=== PATIENT | female | born 1945 | race Caucasian/White ===

== ENCOUNTER 2021-09-22 14:17 | Inpatient (IN) | payer MEDICARE, OTHER ==
[~2021-09-22] VITALS: Ht 170.2 cm; Wt 113.0 kg
[2021-09-22 15:00] VITALS: BP 126/86
[2021-09-22] MEDS ORDERED: POTA-151 PO (15:35)
[2021-09-22] MEDS ORDERED: FURO40TA2 PO (15:35)
[2021-09-22] MEDS ORDERED: HYDR-3490 PO (15:35)
[2021-09-22] MEDS ORDERED: ELIQ5TAB PO (15:35)
[2021-09-22 17:02] LABS: INR 1.43; PROTHROMBIN TIME 17.9 SECONDS (12.7-14.5)
[2021-09-22 17:05] LABS: ALBUMIN 3.1 GM/DL (3.2-5.2); ALT/SGPT 10 U/L (12-78); BILIRUBIN,TOTAL 0.7 MG/DL (0.2-1.0); BLOOD UREA NITROGEN 14 MG/DL (7-18); CALCIUM LEVEL 8.9 MG/DL (8.8-10.2); CARBON DIOXIDE LEVEL 30 MEQ/L (21-32); CHLORIDE LEVEL 103 MEQ/L (98-107); GLOMERULAR FILTRATION RATE > 60.0 (>39); GLUCOSE, FASTING 121 MG/DL (70-100); POTASSIUM SERUM 3.8 MEQ/L (3.5-5.1); SODIUM LEVEL 138 MEQ/L (136-145); TOTAL PROTEIN 7.2 GM/DL (6.4-8.2)
[2021-09-22] MEDS ORDERED: VANCOMYCIN HCL 1,000 MG, VIAL MATE ADAPTER 1 EACH in NS 250 ML IV SCH (17:05)
[2021-09-22 17:18] LABS: HEMATOCRIT 40.1 % (36.0-47.0); HEMOGLOBIN 12.5 g/dl (12.0-15.5); MEAN CORPUSCULAR HGB CONC 31.2 g/dl (32.0-36.5); PLATELET COUNT, AUTOMATED 251 10^3/uL (150-450); RED BLOOD COUNT 4.31 10^6/uL (4.00-5.40)
[2021-09-22] MEDS ORDERED: METF500T13 PO (17:25)
[2021-09-22] MEDS: PIPERACILLIN/TAZOBACTAM SOD 3.375 GM in D5W MINI-BAG PLUS 50 ML IV SCH (17:25)
[2021-09-22] MEDS ORDERED: CARV6.25 PO (17:25)
[2021-09-22] MEDS ORDERED: AMLO1TAB25 PO (17:25)
[2021-09-22] MEDS ORDERED: SIMV10TA21 PO (17:25)
[2021-09-22] MEDS ORDERED: ACET-683 PO (17:27)
[2021-09-22] MEDS ORDERED: ASPI81TA26 PO (17:27)
[2021-09-22] MEDS ORDERED: HOME MED LIST COMPLETE! XX SCH (17:30)
[2021-09-22 17:58] LABS: HEMOGLOBIN A1c 5.5 %
[2021-09-22] MEDS ORDERED: FLUCONAZOLE 50MG TABLET PO ONE (18:00)
[2021-09-22] MEDS ORDERED: VANCOMYCIN HCL 1,000 MG, VIAL MATE ADAPTER 1 EACH in NS 250 ML IV ONE ×2 (18:00→19:00)
[2021-09-22 19:18] VITALS: BP 105/57
[2021-09-22] MEDS: CARVedilol 6.25 MG TAB PO SCH (20:38)
[2021-09-22] MEDS: NYSTATIN CREAM 15 GM TOP SCH (20:39)
[2021-09-22] MEDS: APIXABAN 5 MG TAB (ELIQUIS) PO SCH (20:39)
[2021-09-22 22:00] VITALS: BP 105/62
[2021-09-23] MEDS: PIPERACILLIN/TAZOBACTAM SOD 3.375 GM in D5W MINI-BAG PLUS 50 ML IV SCH ×5 (00:12→23:45)
[2021-09-23] MEDS: VANCOMYCIN HCL 750 MG, VIAL MATE ADAPTER 1 EACH in NS 250 ML IV SCH ×2 (05:53→18:05)
[2021-09-23 06:00] VITALS: BP 127/79
[2021-09-23 06:06] LABS: HEMATOCRIT 35.3 % (36.0-47.0); HEMOGLOBIN 11.1 g/dl (12.0-15.5); MEAN CORPUSCULAR HEMOGLOBIN 29.1 pg (27.0-33.0); MEAN CORPUSCULAR HGB CONC 31.4 g/dl (32.0-36.5); MEAN CORPUSCULAR VOLUME 92.4 fl (80.0-96.0); PLATELET COUNT, AUTOMATED 274 10^3/uL (150-450); RED BLOOD COUNT 3.82 10^6/uL (4.00-5.40); WHITE BLOOD COUNT 6.1 10^3/uL (4.0-10.0)
[2021-09-23 06:27] LABS: BLOOD UREA NITROGEN 14 MG/DL (7-18); CALCIUM LEVEL 8.4 MG/DL (8.8-10.2); CARBON DIOXIDE LEVEL 26 MEQ/L (21-32); CHLORIDE LEVEL 109 MEQ/L (98-107); CREATININE FOR GFR 0.94 MG/DL (0.55-1.30); GLOMERULAR FILTRATION RATE > 60.0 (>39); GLUCOSE, FASTING 108 MG/DL (70-100); SODIUM LEVEL 142 MEQ/L (136-145)
[2021-09-23] MEDS: SIMVASTATIN 10 MG TAB PO SCH (08:20)
[2021-09-23] MEDS: APIXABAN 5 MG TAB (ELIQUIS) PO SCH ×2 (08:20→20:36)
[2021-09-23] MEDS: ASPIRIN 81MG ENTERIC TABLET PO SCH (08:21)
[2021-09-23] MEDS: NYSTATIN CREAM 15 GM TOP SCH ×2 (08:21→20:37)
[2021-09-23] MEDS: CARVedilol 6.25 MG TAB PO SCH ×2 (08:21→20:37)
[2021-09-23 14:00] VITALS: BP 126/72
[2021-09-23] MEDS ORDERED: MORPHINE 2 MG/ML 1ML VIAL (J2270) IV STA (17:18)
[2021-09-23] MEDS ORDERED: MORPHINE 2 MG/ML 1ML VIAL (J2270) As Ordered ONE (17:18)
[2021-09-23 22:00] VITALS: BP 131/84
[2021-09-24] MEDS: PIPERACILLIN/TAZOBACTAM SOD 3.375 GM in D5W MINI-BAG PLUS 50 ML IV SCH ×3 (05:21→17:58)
[2021-09-24 06:00] VITALS: BP_SYST 134; BP_SYST 142; BP_DIAS 85; BP_DIAS 88
[2021-09-24] MEDS: VANCOMYCIN HCL 500 MG in D5W MINI-BAG PLUS 100 ML IV SCH ×2 (06:32→19:02)
[2021-09-24 07:09] LABS: HEMATOCRIT 36.3 % (36.0-47.0); HEMOGLOBIN 11.3 g/dl (12.0-15.5); MEAN CORPUSCULAR HEMOGLOBIN 29.1 pg (27.0-33.0); MEAN CORPUSCULAR HGB CONC 31.1 g/dl (32.0-36.5); MEAN CORPUSCULAR VOLUME 93.6 fl (80.0-96.0); PLATELET COUNT, AUTOMATED 278 10^3/uL (150-450); RED BLOOD COUNT 3.88 10^6/uL (4.00-5.40); WHITE BLOOD COUNT 5.2 10^3/uL (4.0-10.0)
[2021-09-24 07:41] LABS: CALCIUM LEVEL 8.4 MG/DL (8.8-10.2); CREATININE FOR GFR 1.04 MG/DL (0.55-1.30); GLOMERULAR FILTRATION RATE 55.3 (>39); POTASSIUM SERUM 3.8 MEQ/L (3.5-5.1)
[2021-09-24] MEDS: APIXABAN 5 MG TAB (ELIQUIS) PO SCH ×2 (08:27→20:34)
[2021-09-24] MEDS: SIMVASTATIN 10 MG TAB PO SCH (08:27)
[2021-09-24] MEDS: ASPIRIN 81MG ENTERIC TABLET PO SCH (08:27)
[2021-09-24] MEDS: ACETAMINOPHEN TAB 650MG DOSE (2X325MG) PO PRN (08:28)
[2021-09-24] MEDS: CARVedilol 6.25 MG TAB PO SCH ×2 (08:29→20:35)
[2021-09-24] MEDS: NYSTATIN CREAM 15 GM TOP SCH ×2 (08:30→20:36)
[2021-09-24 14:00] VITALS: BP 130/80
[2021-09-24 21:30] VITALS: BP 128/79
[2021-09-25] MEDS: PIPERACILLIN/TAZOBACTAM SOD 3.375 GM in D5W MINI-BAG PLUS 50 ML IV SCH ×2 (00:33→05:49)
[2021-09-25 05:26] LABS: HEMATOCRIT 36.8 % (36.0-47.0); HEMOGLOBIN 11.4 g/dl (12.0-15.5); MEAN CORPUSCULAR HEMOGLOBIN 29.1 pg (27.0-33.0); MEAN CORPUSCULAR VOLUME 93.9 fl (80.0-96.0); PLATELET COUNT, AUTOMATED 286 10^3/uL (150-450); RED BLOOD COUNT 3.92 10^6/uL (4.00-5.40); WHITE BLOOD COUNT 5.3 10^3/uL (4.0-10.0)
[2021-09-25 05:55] LABS: ERYTHROCYTE SEDIMENTATION RATE 20 mm/hr (0-30)
[2021-09-25 05:57] LABS: BLOOD UREA NITROGEN 18 MG/DL (7-18); C REACTIVE PROTEIN QUANTITATIV 2.17 MG/DL (0.00-0.30); CALCIUM LEVEL 8.5 MG/DL (8.8-10.2); CARBON DIOXIDE LEVEL 27 MEQ/L (21-32); CHLORIDE LEVEL 108 MEQ/L (98-107); CREATININE FOR GFR 0.96 MG/DL (0.55-1.30); GLOMERULAR FILTRATION RATE > 60.0 (>39); GLUCOSE, FASTING 107 MG/DL (70-100); POTASSIUM SERUM 3.8 MEQ/L (3.5-5.1); SODIUM LEVEL 139 MEQ/L (136-145)
[2021-09-25 06:00] VITALS: BP 127/78
[2021-09-25] MEDS: VANCOMYCIN HCL 500 MG in D5W MINI-BAG PLUS 100 ML IV SCH (06:53)
[2021-09-25] MEDS: SIMVASTATIN 10 MG TAB PO SCH (08:10)
[2021-09-25] MEDS: APIXABAN 5 MG TAB (ELIQUIS) PO SCH ×2 (08:10→20:41)
[2021-09-25] MEDS: NYSTATIN CREAM 15 GM TOP SCH ×2 (08:10→20:42)
[2021-09-25] MEDS: ASPIRIN 81MG ENTERIC TABLET PO SCH (08:10)
[2021-09-25] MEDS: CARVedilol 6.25 MG TAB PO SCH ×2 (08:12→20:41)
[2021-09-25] MEDS: ACETAMINOPHEN TAB 650MG DOSE (2X325MG) PO PRN (08:15)
[2021-09-25] MEDS: LACTOBACILLUS ACIDOPHILUS CAP (BACID) PO SCH ×3 (08:43→17:46)
[2021-09-25] MEDS: cefTRIAXone SOD 2 GM in D5W MINI-BAG PLUS 50 ML IV SCH (08:44)
[2021-09-25] MEDS: BACTRIM 160MG/800MG DS TAB PO SCH ×2 (08:44→20:41)
[2021-09-25 10:12] LABS: CLOSTRIDIUM DIFFICILE PCR NEGATIVE (NEGATIVE)
[2021-09-25 12:07] VITALS: BP 129/78
[2021-09-25 14:00] VITALS: BP 130/78
[2021-09-25 21:00] VITALS: BP 131/78
[2021-09-26] MEDS ORDERED: NYSTATIN 100,000 UNITS/GM TOPICAL PWD 15 GM TOP PRN (00:40)
[2021-09-26 05:37] VITALS: BP 141/93
[2021-09-26 06:43] LABS: HEMATOCRIT 37.6 % (36.0-47.0); HEMOGLOBIN 11.7 g/dl (12.0-15.5); MEAN CORPUSCULAR HGB CONC 31.1 g/dl (32.0-36.5); MEAN CORPUSCULAR VOLUME 93.1 fl (80.0-96.0); PLATELET COUNT, AUTOMATED 302 10^3/uL (150-450); RED BLOOD COUNT 4.04 10^6/uL (4.00-5.40); WHITE BLOOD COUNT 5.5 10^3/uL (4.0-10.0)
[2021-09-26 07:06] LABS: BLOOD UREA NITROGEN 17 MG/DL (7-18); CALCIUM LEVEL 8.5 MG/DL (8.8-10.2); CARBON DIOXIDE LEVEL 26 MEQ/L (21-32); CHLORIDE LEVEL 107 MEQ/L (98-107); CREATININE FOR GFR 0.94 MG/DL (0.55-1.30); GLOMERULAR FILTRATION RATE > 60.0 (>39); GLUCOSE, FASTING 97 MG/DL (70-100); POTASSIUM SERUM 3.8 MEQ/L (3.5-5.1); SODIUM LEVEL 140 MEQ/L (136-145)
[2021-09-26] MEDS: LACTOBACILLUS ACIDOPHILUS CAP (BACID) PO SCH ×3 (07:45→17:36)
[2021-09-26] MEDS: SIMVASTATIN 10 MG TAB PO SCH (07:46)
[2021-09-26] MEDS: APIXABAN 5 MG TAB (ELIQUIS) PO SCH ×2 (07:46→21:17)
[2021-09-26] MEDS: BACTRIM 160MG/800MG DS TAB PO SCH ×2 (07:46→21:16)
[2021-09-26] MEDS: ASPIRIN 81MG ENTERIC TABLET PO SCH (07:46)
[2021-09-26] MEDS: cefTRIAXone SOD 2 GM in D5W MINI-BAG PLUS 50 ML IV SCH (07:46)
[2021-09-26] MEDS: CARVedilol 6.25 MG TAB PO SCH ×2 (07:51→21:17)
[2021-09-26] MEDS: ACETAMINOPHEN TAB 650MG DOSE (2X325MG) PO PRN (09:14)
[2021-09-26] MEDS ORDERED: RISATAB3 PO (09:32)
[2021-09-26] MEDS ORDERED: AMOX875T PO (09:32)
[2021-09-26] MEDS ORDERED: DOXY-350 PO (09:32)
[2021-09-26] MEDS ORDERED: NYST10006 TOP (09:32)
[2021-09-26] MEDS ORDERED: SILVER SULFADIAZINE 1% CR 50 GM JAR TOP SCH (14:00)
[2021-09-26] MEDS: AMOXICILLIN 875 MG TAB PO SCH (21:16)
[2021-09-27 05:51] VITALS: BP 141/89
[2021-09-27 06:37] LABS: HEMATOCRIT 38.3 % (36.0-47.0); MEAN CORPUSCULAR HEMOGLOBIN 29.3 pg (27.0-33.0); MEAN CORPUSCULAR HGB CONC 31.3 g/dl (32.0-36.5); MEAN CORPUSCULAR VOLUME 93.4 fl (80.0-96.0); PLATELET COUNT, AUTOMATED 289 10^3/uL (150-450); WHITE BLOOD COUNT 6.1 10^3/uL (4.0-10.0)
[2021-09-27 06:59] LABS: CALCIUM LEVEL 8.6 MG/DL (8.8-10.2); CREATININE FOR GFR 0.99 MG/DL (0.55-1.30); GLOMERULAR FILTRATION RATE 58.5 (>39); POTASSIUM SERUM 4.1 MEQ/L (3.5-5.1)
[2021-09-27] MEDS: ASPIRIN 81MG ENTERIC TABLET PO SCH (08:14)
[2021-09-27] MEDS: SIMVASTATIN 10 MG TAB PO SCH (08:14)
[2021-09-27] MEDS: AMOXICILLIN 875 MG TAB PO SCH ×2 (08:14→20:09)
[2021-09-27] MEDS: APIXABAN 5 MG TAB (ELIQUIS) PO SCH ×2 (08:14→20:09)
[2021-09-27] MEDS: LACTOBACILLUS ACIDOPHILUS CAP (BACID) PO SCH ×3 (08:14→18:13)
[2021-09-27] MEDS: BACTRIM 160MG/800MG DS TAB PO SCH ×2 (08:14→20:09)
[2021-09-27] MEDS: CARVedilol 6.25 MG TAB PO SCH ×2 (08:15→20:09)
[2021-09-27] MEDS: ACETAMINOPHEN TAB 650MG DOSE (2X325MG) PO PRN (18:13)
[2021-09-28 05:47] VITALS: BP 136/78
[2021-09-28] MEDS: ASPIRIN 81MG ENTERIC TABLET PO SCH (09:08)
[2021-09-28] MEDS: LACTOBACILLUS ACIDOPHILUS CAP (BACID) PO SCH ×3 (09:09→18:48)
[2021-09-28] MEDS: BACTRIM 160MG/800MG DS TAB PO SCH ×2 (09:09→20:19)
[2021-09-28] MEDS: CARVedilol 6.25 MG TAB PO SCH ×2 (09:09→20:20)
[2021-09-28] MEDS: APIXABAN 5 MG TAB (ELIQUIS) PO SCH ×2 (09:09→20:19)
[2021-09-28] MEDS: SIMVASTATIN 10 MG TAB PO SCH (09:09)
[2021-09-28] MEDS: ACETAMINOPHEN TAB 650MG DOSE (2X325MG) PO PRN (09:12)
[2021-09-28] MEDS: AMOXICILLIN 875 MG TAB PO SCH ×2 (09:12→20:19)
[2021-09-29 06:00] VITALS: BP 125/80
[2021-09-29] MEDS: ASPIRIN 81MG ENTERIC TABLET PO SCH (08:40)
[2021-09-29] MEDS: APIXABAN 5 MG TAB (ELIQUIS) PO SCH ×2 (08:40→20:58)
[2021-09-29] MEDS: AMOXICILLIN 875 MG TAB PO SCH ×2 (08:41→20:57)
[2021-09-29] MEDS: SIMVASTATIN 10 MG TAB PO SCH (08:41)
[2021-09-29] MEDS: LACTOBACILLUS ACIDOPHILUS CAP (BACID) PO SCH ×3 (08:41→17:59)
[2021-09-29] MEDS: BACTRIM 160MG/800MG DS TAB PO SCH ×2 (08:41→20:58)
[2021-09-29] MEDS: CARVedilol 6.25 MG TAB PO SCH ×2 (08:42→20:58)
[2021-09-29] MEDS: ACETAMINOPHEN TAB 650MG DOSE (2X325MG) PO PRN (08:47)
[2021-09-29 22:00] VITALS: BP 129/73
[2021-09-30 06:00] VITALS: BP 134/74
[2021-09-30 08:00] VITALS: BP 121/66
[2021-09-30] MEDS: ASPIRIN 81MG ENTERIC TABLET PO SCH (08:21)
[2021-09-30] MEDS: AMOXICILLIN 875 MG TAB PO SCH ×2 (08:21→20:50)
[2021-09-30] MEDS: APIXABAN 5 MG TAB (ELIQUIS) PO SCH ×2 (08:21→20:50)
[2021-09-30] MEDS: LACTOBACILLUS ACIDOPHILUS CAP (BACID) PO SCH ×3 (08:21→17:24)
[2021-09-30] MEDS: SIMVASTATIN 10 MG TAB PO SCH (08:21)
[2021-09-30] MEDS: CARVedilol 6.25 MG TAB PO SCH ×2 (08:23→20:50)
[2021-09-30] MEDS: ACETAMINOPHEN TAB 650MG DOSE (2X325MG) PO PRN (11:10)
[2021-10-01 06:00] VITALS: BP 137/90
[2021-10-01] MEDS: AMOXICILLIN 875 MG TAB PO SCH ×2 (08:29→20:51)
[2021-10-01] MEDS: ASPIRIN 81MG ENTERIC TABLET PO SCH (08:29)
[2021-10-01] MEDS: LACTOBACILLUS ACIDOPHILUS CAP (BACID) PO SCH ×3 (08:29→16:54)
[2021-10-01] MEDS: APIXABAN 5 MG TAB (ELIQUIS) PO SCH ×2 (08:29→20:51)
[2021-10-01] MEDS: SIMVASTATIN 10 MG TAB PO SCH (08:32)
[2021-10-01] MEDS: CARVedilol 6.25 MG TAB PO SCH ×2 (08:32→20:51)
[2021-10-01] MEDS: ACETAMINOPHEN TAB 650MG DOSE (2X325MG) PO PRN (16:54)
[2021-10-02 06:00] VITALS: BP 138/74
[2021-10-02] MEDS: LACTOBACILLUS ACIDOPHILUS CAP (BACID) PO SCH ×3 (08:31→17:43)
[2021-10-02] MEDS: ASPIRIN 81MG ENTERIC TABLET PO SCH (09:39)
[2021-10-02] MEDS: SIMVASTATIN 10 MG TAB PO SCH (09:39)
[2021-10-02] MEDS: APIXABAN 5 MG TAB (ELIQUIS) PO SCH ×2 (09:39→20:14)
[2021-10-02] MEDS: AMOXICILLIN 875 MG TAB PO SCH ×2 (09:39→20:14)
[2021-10-02] MEDS: CARVedilol 6.25 MG TAB PO SCH ×2 (09:40→20:16)
[2021-10-02] MEDS: ACETAMINOPHEN TAB 650MG DOSE (2X325MG) PO PRN (12:35)
[2021-10-03 05:46] VITALS: BP 119/68
[2021-10-03 06:32] LABS: BASO # 0.1 10^3/uL (0.0-0.2); BASO % 1.2 % (0.0-1.0); EOS # 0.2 10^3/uL (0.0-0.5); EOS % 3.8 % (0.0-3.0); HEMATOCRIT 38.2 % (36.0-47.0); HEMOGLOBIN 11.9 g/dl (12.0-15.5); LYMPH % 23.5 % (24.0-44.0); MEAN CORPUSCULAR HEMOGLOBIN 29.2 pg (27.0-33.0); MEAN CORPUSCULAR HGB CONC 31.2 g/dl (32.0-36.5); MEAN CORPUSCULAR VOLUME 93.6 fl (80.0-96.0); MONO # 0.4 10^3/uL (0.0-0.8); MONO % 10.1 % (2.0-8.0); NEUTROPHILS # 2.5 10^3/uL (1.5-8.5); NEUTROPHILS % 60.9 % (36.0-66.0); PLATELET COUNT, AUTOMATED 246 10^3/uL (150-450); RED BLOOD COUNT 4.08 10^6/uL (4.00-5.40); WHITE BLOOD COUNT 4.2 10^3/uL (4.0-10.0)
[2021-10-03 06:36] LABS: INR 1.54; PROTHROMBIN TIME 18.9 SECONDS (12.7-14.5)
[2021-10-03 06:37] LABS: PARTIAL THROMBOPLASTIN TIME 43.9 SECONDS (25.9-37.0)
[2021-10-03 07:02] LABS: ALBUMIN 2.7 GM/DL (3.2-5.2); ALT/SGPT 11 U/L (12-78); BILIRUBIN,TOTAL 0.6 MG/DL (0.2-1.0); BLOOD UREA NITROGEN 19 MG/DL (7-18); CALCIUM LEVEL 8.9 MG/DL (8.8-10.2); CARBON DIOXIDE LEVEL 26 MEQ/L (21-32); CHLORIDE LEVEL 107 MEQ/L (98-107); GLOMERULAR FILTRATION RATE > 60.0 (>39); GLUCOSE, FASTING 77 MG/DL (70-100); POTASSIUM SERUM 4.1 MEQ/L (3.5-5.1); SODIUM LEVEL 138 MEQ/L (136-145); TOTAL PROTEIN 6.1 GM/DL (6.4-8.2)
[2021-10-03] MEDS: AMOXICILLIN 875 MG TAB PO SCH (08:16)
[2021-10-03] MEDS: SIMVASTATIN 10 MG TAB PO SCH (08:17)
[2021-10-03] MEDS: APIXABAN 5 MG TAB (ELIQUIS) PO SCH ×2 (08:17→21:02)
[2021-10-03] MEDS: ASPIRIN 81MG ENTERIC TABLET PO SCH (08:17)
[2021-10-03] MEDS: CARVedilol 6.25 MG TAB PO SCH ×2 (08:19→21:03)
[2021-10-03] MEDS: LACTOBACILLUS ACIDOPHILUS CAP (BACID) PO SCH ×3 (08:19→17:45)
[2021-10-03] MEDS: ACETAMINOPHEN TAB 650MG DOSE (2X325MG) PO PRN (09:35)
[2021-10-04 06:00] VITALS: BP 129/77
[2021-10-04] MEDS: ASPIRIN 81MG ENTERIC TABLET PO SCH (08:24)
[2021-10-04] MEDS: SIMVASTATIN 10 MG TAB PO SCH (08:24)
[2021-10-04] MEDS: APIXABAN 5 MG TAB (ELIQUIS) PO SCH ×2 (08:24→21:36)
[2021-10-04] MEDS: CARVedilol 6.25 MG TAB PO SCH ×2 (08:24→21:38)
[2021-10-04] MEDS: LACTOBACILLUS ACIDOPHILUS CAP (BACID) PO SCH ×3 (08:24→18:23)
[2021-10-04] MEDS: ACETAMINOPHEN TAB 650MG DOSE (2X325MG) PO PRN (08:27)
[2021-10-05 06:00] VITALS: BP 128/76
[2021-10-05] MEDS: SIMVASTATIN 10 MG TAB PO SCH (08:16)
[2021-10-05] MEDS: CARVedilol 6.25 MG TAB PO SCH ×2 (08:16→20:05)
[2021-10-05] MEDS: APIXABAN 5 MG TAB (ELIQUIS) PO SCH ×2 (08:16→20:05)
[2021-10-05] MEDS: LACTOBACILLUS ACIDOPHILUS CAP (BACID) PO SCH ×3 (08:16→18:04)
[2021-10-05] MEDS: ASPIRIN 81MG ENTERIC TABLET PO SCH (08:17)
[2021-10-05] MEDS: ACETAMINOPHEN TAB 650MG DOSE (2X325MG) PO PRN (08:19)
[2021-10-06 06:00] VITALS: BP 141/86
[2021-10-06] MEDS: APIXABAN 5 MG TAB (ELIQUIS) PO SCH ×2 (08:51→20:10)
[2021-10-06] MEDS: SIMVASTATIN 10 MG TAB PO SCH (08:51)
[2021-10-06] MEDS: ASPIRIN 81MG ENTERIC TABLET PO SCH (08:51)
[2021-10-06] MEDS: LACTOBACILLUS ACIDOPHILUS CAP (BACID) PO SCH ×3 (08:51→17:27)
[2021-10-06] MEDS: CARVedilol 6.25 MG TAB PO SCH ×2 (08:53→20:10)
[2021-10-07 06:00] VITALS: BP 146/84
[2021-10-07] MEDS: SIMVASTATIN 10 MG TAB PO SCH (07:58)
[2021-10-07] MEDS: LACTOBACILLUS ACIDOPHILUS CAP (BACID) PO SCH ×3 (07:58→17:58)
[2021-10-07] MEDS: CARVedilol 6.25 MG TAB PO SCH ×2 (07:59→21:09)
[2021-10-07] MEDS: ASPIRIN 81MG ENTERIC TABLET PO SCH (07:59)
[2021-10-07] MEDS: APIXABAN 5 MG TAB (ELIQUIS) PO SCH ×2 (07:59→21:09)
[2021-10-07] MEDS: ACETAMINOPHEN TAB 650MG DOSE (2X325MG) PO PRN (15:32)
[2021-10-07 21:00] VITALS: BP 138/89
[2021-10-08 06:00] VITALS: BP 147/91
[2021-10-08] MEDS: LACTOBACILLUS ACIDOPHILUS CAP (BACID) PO SCH ×3 (08:04→17:36)
[2021-10-08] MEDS: ASPIRIN 81MG ENTERIC TABLET PO SCH (08:04)
[2021-10-08] MEDS: SIMVASTATIN 10 MG TAB PO SCH (08:04)
[2021-10-08] MEDS: APIXABAN 5 MG TAB (ELIQUIS) PO SCH ×2 (08:04→20:24)
[2021-10-08] MEDS: CARVedilol 6.25 MG TAB PO SCH ×2 (08:06→20:26)
[2021-10-08] MEDS: TORSEMIDE 20 MG TAB PO SCH ×2 (09:40→17:36)
[2021-10-08] MEDS: POTASSIUM CHLORIDE 10MEQ SR TABLET PO SCH (09:40)
[2021-10-08] MEDS: ACETAMINOPHEN TAB 650MG DOSE (2X325MG) PO PRN (09:43)
[2021-10-09 06:00] VITALS: BP 153/70
[2021-10-09 06:20] LABS: BASO # 0.1 10^3/uL (0.0-0.2); BASO % 1.6 % (0.0-1.0); EOS # 0.2 10^3/uL (0.0-0.5); EOS % 3.4 % (0.0-3.0); HEMATOCRIT 38.2 % (36.0-47.0); LYMPH % 22.7 % (24.0-44.0); MEAN CORPUSCULAR HEMOGLOBIN 29.2 pg (27.0-33.0); MEAN CORPUSCULAR HGB CONC 31.4 g/dl (32.0-36.5); MEAN CORPUSCULAR VOLUME 92.9 fl (80.0-96.0); MONO # 0.5 10^3/uL (0.0-0.8); MONO % 11.8 % (2.0-8.0); NEUTROPHILS # 2.6 10^3/uL (1.5-8.5); PLATELET COUNT, AUTOMATED 235 10^3/uL (150-450); RED BLOOD COUNT 4.11 10^6/uL (4.00-5.40); WHITE BLOOD COUNT 4.4 10^3/uL (4.0-10.0)
[2021-10-09 06:35] LABS: BLOOD UREA NITROGEN 24 MG/DL (7-18); CALCIUM LEVEL 8.8 MG/DL (8.8-10.2); CARBON DIOXIDE LEVEL 31 MEQ/L (21-32); CHLORIDE LEVEL 105 MEQ/L (98-107); CREATININE FOR GFR 0.94 MG/DL (0.55-1.30); GLOMERULAR FILTRATION RATE > 60.0 (>39); GLUCOSE, FASTING 83 MG/DL (70-100); POTASSIUM SERUM 3.9 MEQ/L (3.5-5.1); SODIUM LEVEL 142 MEQ/L (136-145)
[2021-10-09] MEDS: SIMVASTATIN 10 MG TAB PO SCH (08:17)
[2021-10-09] MEDS: LACTOBACILLUS ACIDOPHILUS CAP (BACID) PO SCH ×3 (08:17→17:33)
[2021-10-09] MEDS: POTASSIUM CHLORIDE 10MEQ SR TABLET PO SCH (08:17)
[2021-10-09] MEDS: TORSEMIDE 20 MG TAB PO SCH ×2 (08:17→17:34)
[2021-10-09] MEDS: CARVedilol 6.25 MG TAB PO SCH ×2 (08:18→21:38)
[2021-10-09] MEDS: ASPIRIN 81MG ENTERIC TABLET PO SCH (08:18)
[2021-10-09] MEDS: APIXABAN 5 MG TAB (ELIQUIS) PO SCH ×2 (08:18→21:36)
[2021-10-09 08:21] VITALS: BP 135/78
[2021-10-09 22:00] VITALS: BP 102/51
[2021-10-10 06:00] VITALS: BP 132/77
[2021-10-10 08:55] VITALS: BP 132/77
[2021-10-10] MEDS: APIXABAN 5 MG TAB (ELIQUIS) PO SCH ×2 (09:51→20:38)
[2021-10-10] MEDS: POTASSIUM CHLORIDE 10MEQ SR TABLET PO SCH (09:51)
[2021-10-10] MEDS: SIMVASTATIN 10 MG TAB PO SCH (09:52)
[2021-10-10] MEDS: ASPIRIN 81MG ENTERIC TABLET PO SCH (09:52)
[2021-10-10] MEDS: LACTOBACILLUS ACIDOPHILUS CAP (BACID) PO SCH ×3 (09:52→17:45)
[2021-10-10] MEDS: CARVedilol 6.25 MG TAB PO SCH ×2 (09:56→20:39)
[2021-10-10] MEDS: TORSEMIDE 20 MG TAB PO SCH ×2 (09:57→17:45)
[2021-10-11 06:00] VITALS: BP 143/87
[2021-10-11 08:50] VITALS: BP 143/87
[2021-10-11] MEDS: LACTOBACILLUS ACIDOPHILUS CAP (BACID) PO SCH ×3 (10:04→17:27)
[2021-10-11] MEDS: POTASSIUM CHLORIDE 10MEQ SR TABLET PO SCH (10:05)
[2021-10-11] MEDS: APIXABAN 5 MG TAB (ELIQUIS) PO SCH ×2 (10:05→20:56)
[2021-10-11] MEDS: SIMVASTATIN 10 MG TAB PO SCH (10:05)
[2021-10-11] MEDS: ASPIRIN 81MG ENTERIC TABLET PO SCH (10:05)
[2021-10-11] MEDS: TORSEMIDE 20 MG TAB PO SCH ×2 (10:06→17:27)
[2021-10-11] MEDS: CARVedilol 6.25 MG TAB PO SCH ×2 (10:06→20:56)
[2021-10-11 15:43] LABS: BASO # 0.1 10^3/uL (0.0-0.2); BASO % 0.6 % (0.0-1.0); EOS # 0.1 10^3/uL (0.0-0.5); EOS % 0.5 % (0.0-3.0); HEMATOCRIT 44.3 % (36.0-47.0); HEMOGLOBIN 14.1 g/dl (12.0-15.5); LYMPH % 8.1 % (24.0-44.0); MEAN CORPUSCULAR HGB CONC 31.8 g/dl (32.0-36.5); MONO # 0.6 10^3/uL (0.0-0.8); NEUTROPHILS # 10.2 10^3/uL (1.5-8.5); NEUTROPHILS % 85.5 % (36.0-66.0); PLATELET COUNT, AUTOMATED 264 10^3/uL (150-450); RED BLOOD COUNT 4.87 10^6/uL (4.00-5.40); WHITE BLOOD COUNT 11.9 10^3/uL (4.0-10.0)
[2021-10-11 16:03] LABS: GLOMERULAR FILTRATION RATE 57.9 (>39); MAGNESIUM LEVEL 1.8 MG/DL (1.8-2.4); POTASSIUM SERUM 3.3 MEQ/L (3.5-5.1)
[2021-10-11] MEDS ORDERED: POTASSIUM CHLORIDE 10MEQ SR TABLET PO ONE (18:45)
[2021-10-11] MEDS: ACETAMINOPHEN TAB 650MG DOSE (2X325MG) PO PRN (20:56)
[2021-10-12] MEDS: TORSEMIDE 20 MG TAB PO SCH (09:00)
[2021-10-12 09:02] LABS: BASO # 0.1 10^3/uL (0.0-0.2); BASO % 0.9 % (0.0-1.0); EOS # 0.1 10^3/uL (0.0-0.5); EOS % 1.3 % (0.0-3.0); HEMATOCRIT 43.4 % (36.0-47.0); HEMOGLOBIN 13.5 g/dl (12.0-15.5); LYMPH % 11.3 % (24.0-44.0); MEAN CORPUSCULAR HEMOGLOBIN 28.7 pg (27.0-33.0); MEAN CORPUSCULAR HGB CONC 31.1 g/dl (32.0-36.5); MEAN CORPUSCULAR VOLUME 92.3 fl (80.0-96.0); MONO # 0.5 10^3/uL (0.0-0.8); MONO % 5.6 % (2.0-8.0); NEUTROPHILS # 6.9 10^3/uL (1.5-8.5); NEUTROPHILS % 80.7 % (36.0-66.0); PLATELET COUNT, AUTOMATED 224 10^3/uL (150-450); WHITE BLOOD COUNT 8.6 10^3/uL (4.0-10.0)
[2021-10-12] MEDS: ASPIRIN 81MG ENTERIC TABLET PO SCH (09:16)
[2021-10-12] MEDS: SIMVASTATIN 10 MG TAB PO SCH (09:16)
[2021-10-12] MEDS: APIXABAN 5 MG TAB (ELIQUIS) PO SCH (09:16)
[2021-10-12 09:17] VITALS: BP 140/88
[2021-10-12] MEDS: POTASSIUM CHLORIDE 10MEQ SR TABLET PO SCH (09:17)
[2021-10-12] MEDS: CARVedilol 6.25 MG TAB PO SCH (09:17)
[2021-10-12] MEDS: LACTOBACILLUS ACIDOPHILUS CAP (BACID) PO SCH ×2 (09:17→11:55)
[2021-10-12 09:21] LABS: ALBUMIN 2.8 GM/DL (3.2-5.2); ALT/SGPT 10 U/L (12-78); BILIRUBIN,TOTAL 1.4 MG/DL (0.2-1.0); BLOOD UREA NITROGEN 19 MG/DL (7-18); CALCIUM LEVEL 8.8 MG/DL (8.8-10.2); CARBON DIOXIDE LEVEL 30 MEQ/L (21-32); CHLORIDE LEVEL 101 MEQ/L (98-107); CREATININE FOR GFR 0.91 MG/DL (0.55-1.30); GLOMERULAR FILTRATION RATE > 60.0 (>39); GLUCOSE, FASTING 128 MG/DL (70-100); MAGNESIUM LEVEL 1.7 MG/DL (1.8-2.4); POTASSIUM SERUM 3.3 MEQ/L (3.5-5.1); SODIUM LEVEL 141 MEQ/L (136-145); TOTAL PROTEIN 6.9 GM/DL (6.4-8.2)
[2021-10-12] MEDS ORDERED: POTASSIUM CHLORIDE 10MEQ SR TABLET PO ONE (10:30)
[2021-10-12] MEDS ORDERED: MAGNESIUM OXIDE 400MG TAB (MAG-OX) PO ONE (10:30)
[2021-10-12 10:36] LABS: CLOSTRIDIUM DIFFICILE PCR POSITIVE (NEGATIVE)
[2021-10-12] MEDS ORDERED: FIDAXOMICIN 200 MG TAB (DIFICID) PO SCH (10:45)
[2021-10-12] MEDS ORDERED: MAG SULF 1GM/100ML (MAG RUN) 1 GM in IV 1 EA IV SCH (11:00)
[2021-10-12] MEDS ORDERED: FIRV50SO PO (11:10)
[2021-10-12] MEDS ORDERED: TORS20TA2 PO (11:42)
[2021-10-12] MEDS ORDERED: VANCOMYCIN ORAL SOL 250MG/5ML ORAL SYRINGE PO SCH (12:00)
== END 2021-10-12 13:10 | DRG 622 ==
LOC: M MSPAV 14:59
PROVIDERS: ADMIT Internal Medicine; ATTEND Family Medicine
PROC: 0KBV0ZZ Excision of Right Foot Muscle, Open Approach (ICD-10-PCS; principal; 2021-09-23)
PROC: 0HDRXZZ Extraction of Toe Nail, External Approach (ICD-10-PCS; 2021-09-23)
DX: E11.621 Type 2 diabetes mellitus with foot ulcer (principal); L89.623 Pressure ulcer of left heel, stage 3; L89.613 Pressure ulcer of right heel, stage 3; N39.0 Urinary tract infection, site not specified; L03.116 Cellulitis of left lower limb; L03.115 Cellulitis of right lower limb; I48.19 Other persistent atrial fibrillation; L97.516 Non-pressure chronic ulcer of other part of right foot with bone involvement without evidence of necrosis; K52.1 Toxic gastroenteritis and colitis; I50.9 Heart failure, unspecified; E78.5 Hyperlipidemia, unspecified; E11.610 Type 2 diabetes mellitus with diabetic neuropathic arthropathy; I11.0 Hypertensive heart disease with heart failure; I82.811 Embolism and thrombosis of superficial veins of right lower extremity; B37.2 Candidiasis of skin and nail; T37.0X5A Adverse effect of sulfonamides, initial encounter; E66.9 Obesity, unspecified; B37.3 Candidiasis of vulva and vagina; I87.2 Venous insufficiency (chronic) (peripheral); Z68.39 Body mass index [BMI] 39.0-39.9, adult; Z79.01 Long term (current) use of anticoagulants; Z79.82 Long term (current) use of aspirin; Z79.84 Long term (current) use of oral hypoglycemic drugs; Z79.899 Other long term (current) drug therapy; Z88.8 Allergy status to other drugs, medicaments and biological substances; Z74.1 Need for assistance with personal care; Z20.822 Contact with and (suspected) exposure to COVID-19